=== PATIENT | female | born 1935 | race Caucasian/White ===

== ENCOUNTER 2023-02-22 14:49 | Emergency (ER) | payer MEDICARE, OTHER ==
[2023-02-22] MEDS ORDERED: Acetaminophen 325 MG Tab PO ONE (16:06)
== END 2023-02-22 18:15 | disposition home or self-care (01) ==
LOC: MW.ED 14:49
DX: S02.2XXA Fracture of nasal bones, initial encounter for closed fracture (principal); W01.0XXA Fall on same level from slipping, tripping and stumbling without subsequent striking against object, initial encounter
CPT/HCPCS: 70450; 70450-26; 70486; 70486-26; 74176; 74176-26; 99283